=== PATIENT | female | born 1980 | race American Indian/Alaskan Native ===

== ENCOUNTER 2021-04-05 19:57 | Emergency (ER) | payer OTHER ==
[2021-04-05] MEDS ORDERED: METOCLOPRAMIDE 10 MG/2 ML INJ IV ONE (23:46)
[2021-04-05] MEDS ORDERED: diphenhydrAMINE 50 MG/ML VIAL IV ONE (23:46)
[2021-04-05] MEDS ORDERED: ACETAMINOPHEN 500 MG TAB PO ONE (23:46)
[2021-04-05] MEDS ORDERED: dexAMETHasone 20 MG/5 ML VIAL IV ONE (23:46)
[2021-04-05] MEDS ORDERED: amLODIPine 5 MG TAB PO ONE (23:47)
[2021-04-05] MEDS ORDERED: SODIUM CHLORIDE 0.9% 500 ML 500 ML IV ONE (23:47)
--- NOTE | 2021-04-05 23:59 | Emergency Department Report ---
ED General Adult HPI - General Chief complaint: Headache Stated complaint: HEADACHES X2 WEEKS/NAUSEA Time Seen by Provider: 04/05/21 23:45 Source: patient Mode of arrival: Ambulatory Limitations: No Limitations - History of Present Illness Initial comments: Patient 41-year-old Afro-[place]in[place] female who presents for frontal headache x2 weeks. Seen by [facility] PCP advised she has cluster headaches. Patient rates pain at 5/10 at this time there is no fever no chills no nausea no vomiting no ear or throat pain. Patient drove self to ED tonight patient is amatory to baseline per patient. Patient was there is associated photophobia no nausea no vomiting however. Headache is recurrent in same location and intensity and duration as of previous headaches. Patient prescribed Imitrex and Zofran states she only took 1 dose of each. Patient is tolerating p.o. intake. Patient has history of hypertension however did not take hypertensive medications today. - Related Data Previous Rx's Medication Instructions Recorded Last Taken Type Acetaminophen 1,000 mg PO Q6H PRN #30 cap 04/06/21 Unknown Rx Metoclopramide [Reglan] 10 mg PO Q6H PRN #30 tablet 04/06/21 Unknown Rx diphenhydrAMINE [Benadryl CAP] 25 mg PO Q6HR PRN #30 capsule 04/06/21 Unknown Rx Allergies Allergy/AdvReac Type Severity Reaction Status Date / Time meperidine [From Demerol] Allergy Unknown Verified 04/05/21 21:53 ED Review of Systems ROS: Stated complaint: HEADACHES X2 WEEKS/NAUSEA Other details as noted in HPI Constitutional: denies: chills, fever Eyes: other (photophobia). denies: eye pain, eye discharge, vision change ENT: denies: ear pain, throat pain Respiratory: denies: cough, shortness of breath, wheezing Cardiovascular: denies: chest pain, palpitations Endocrine: no symptoms reported Gastrointestinal: nausea. denies: abdominal pain, vomiting, diarrhea Genitourinary: denies: urgency, dysuria, discharge Musculoskeletal: denies: back pain, joint swelling, arthralgia Skin: denies: rash, lesions Neurological: headache. denies: weakness, numbness, paresthesias, confusion, vertigo Psychiatric: denies: anxiety, depression Hematological/Lymphatic: denies: easy bleeding, easy bruising ED Past Medical Hx - Past Medical History Previous Medical History?: No - Surgical History Past Surgical History?: No - Medications Home Medications: Home Medications Medication Instructions Recorded Confirmed Last Taken Type Acetaminophen 1,000 mg PO Q6H PRN #30 cap 04/06/21 Unknown Rx Metoclopramide [Reglan] 10 mg PO Q6H PRN #30 tablet 04/06/21 Unknown Rx diphenhydrAMINE [Benadryl CAP] 25 mg PO Q6HR PRN #30 capsule 04/06/21 Unknown Rx ED Physical Exam - General Limitations: No Limitations General appearance: alert, in no apparent distress - Head Head exam: Present: normocephalic - Eye Eye exam: Present: PERRL, EOMI. Absent: conjunctival injection, nystagmus Pupils: Present: normal accommodation - ENT ENT exam: Present: normal orophraynx, mucous membranes moist, TM's normal bilaterally - Neck Neck exam: Present: normal inspection, full ROM. Absent: tenderness, meningismu s, lymphadenopathy - Respiratory Respiratory exam: Present: normal lung sounds bilaterally. Absent: respiratory distress, wheezes, stridor, chest wall tenderness - Cardiovascular Cardiovascular Exam: Present: regular rate, normal rhythm, normal heart sounds. Absent: systolic murmur, diastolic murmur, rubs, gallop - GI/Abdominal GI/Abdominal exam: Present: soft, normal bowel sounds. Absent: distended, tenderness, bruit, hernia - Rectal Rectal exam: Present: deferred - Extremities Exam Extremities exam: Present: normal inspection, full ROM, normal capillary refill. Absent: tenderness - Back Exam Back exam: Present: normal inspection, full ROM. Absent: CVA tenderness (R), CVA tenderness (L), vertebral tenderness - Neurological Exam Neurological exam: Present: alert, oriented X3, CN II-XII intact, normal gait - Expanded Neurological Exam Expanded Patient oriented to: Present: person, place, time Speech: Present: fluid speech Motor strength exam: RUE: 5, LUE: 5, RLE: 5, LLE: 5 DTR: knee (R): 1+, knee (L): 1+ Best Eye Response (María): (4) open spontaneously Best Motor Response ([place]): (6) obeys commands Best Verbal Response (María): (5) oriented [place] Total: 15 - Psychiatric Psychiatric exam: Present: normal affect, normal mood - Skin Skin exam: Present: warm, dry, intact, normal color. Absent: rash ED Course Vital Signs 04/05/21 04/06/21 21:54 00:02 Temperature 98.0 F Pulse Rate 94 H Respiratory 18 14 Rate Blood Pressure 166/118 O2 Sat by Pulse 100 Oximetry ED Medical Decision Making - Medical Decision Making Headache is resolved at this time plan DC to home with prescriptions. Follow-up with your doctor in 2 to 3 days. Continue to hydrate as directed. Return to emergency department should symptoms worsen. Patient verbalized agreement and understanding of discharge plan. Patient DC'd home in stable condition at this time Critical care attestation.: If time is entered above; I have spent that time in minutes in the direct care of this critically ill patient, excluding procedure time. ED Disposition Clinical Impression: Cluster headache syndrome, not intractable Qualifiers: Headache chronicity pattern: episodic headache Qualified Code(s): G44.019 - Episodic cluster headache, not intractable Disposition: 01 HOME / SELF CARE / HOMELESS Is pt being admited?: No Does the pt Need Aspirin: No Condition: Stable Instructions: Form - Headache Record, Cluster Headache, [id number], Cluster Headache Additional Instructions: Take medications as prescribed. Hydrate as directed. Follow-up with your doctor in 2 to 3 days. Return to emergency department should symptoms worsen. Prescriptions: Acetaminophen 1,000 mg PO Q6H PRN #30 cap PRN Reason: Headache diphenhydrAMINE [Benadryl CAP] 25 mg PO Q6HR PRN #30 capsule PRN Reason: Headache Metoclopramide [Reglan] 10 mg PO Q6H PRN #30 tablet PRN Reason: Headache Referrals: RORY ORTIZ MD [Staff Physician] - 3-5 Days Forms: Work/School Release Form(ED) Time of Disposition: 03:20
[2021-04-06 04:06] VITALS: BP 115/81
== END 2021-04-06 03:53 | disposition home or self-care (01) ==
LOC: ED 19:57
DX: G44.009 Cluster headache syndrome, unspecified, not intractable (principal); Z88.8 Allergy status to other drugs, medicaments and biological substances; Z79.899 Other long term (current) drug therapy
CPT/HCPCS: 96374; 96375; 99282; J1100; J1200; J2765; J7040

== ENCOUNTER 2021-04-09 09:40 | Emergency (ER) | payer OTHER ==
--- NOTE | 2021-04-09 11:28 | Emergency Department Report ---
ED Headache HPI - General Chief Complaint: Headache Stated Complaint: HEADACHE/DIZZY Time Seen by Provider: 04/09/21 11:06 Source: patient Exam Limitations: no limitations - History of Present Illness Initial Comments: 41 yo comes to ER with headache off and on for 2 weeks She was here a couple of days ago- no scan Her mother has routine head MRI's following a ? pathology Pt endorses light sensitivity and nausea she also endorses difficulty with words when she had a headache no head trauma Her PCP Dr Foster has referred her to neuro; as did the ER but she has not folll owed up hx htn on norvasc lmp 03/30 ambulatory with no focal neuro def in triage Recent Head Trauma: no recent headache/trauma Associated Symptoms: denies symptoms, nausea/vomiting. denies: confusion, fatigue, facial pain, fever/chills, flushing, loss of consciousness, nasal congestion, nasal drainage, numbness in legs/feet, rash, seizures, sinus infection, stiff neck, vision changes, weakness Allergies/Adverse Reactions: Allergies meperidine [From Demerol] Allergy (Verified 04/05/21 21:53) Unknown Home Medications: Ambulatory Orders Acetaminophen 1,000 mg PO Q6H PRN #30 cap 04/06/21 Metoclopramide [Reglan] 10 mg PO Q6H PRN #30 tablet 04/06/21 diphenhydrAMINE [Benadryl CAP] 25 mg PO Q6HR PRN #30 capsule 04/06/21 ED Review of Systems ROS: Stated complaint: HEADACHE/DIZZY Other details as noted in HPI Comment: All other systems reviewed and negative ED Past Medical Hx - Past Medical History Previous Medical History?: No - Surgical History Past Surgical History?: No - Family History Family history: no significant - Social History Smoking Status: Never Smoker Substance Use Type: None - Medications Home Medications: Home Medications Medication Instructions Recorded Confirmed Last Taken Type Acetaminophen 1,000 mg PO Q6H PRN #30 cap 04/06/21 Unknown Rx Metoclopramide [Reglan] 10 mg PO Q6H PRN #30 tablet 04/06/21 Unknown Rx diphenhydrAMINE [Benadryl CAP] 25 mg PO Q6HR PRN #30 capsule 04/06/21 Unknown Rx ED Physical Exam - General Limitations: No Limitations General appearance: alert, in no apparent distress - Head Head exam: Present: atraumatic, normocephalic - Eye Eye exam: Present: normal appearance - ENT ENT exam: Present: mucous membranes moist - Neck Neck exam: Present: normal inspection - Respiratory Respiratory exam: Present: normal lung sounds bilaterally. Absent: respiratory distress - Cardiovascular Cardiovascular Exam: Present: regular rate, normal rhythm. Absent: systolic murmur, diastolic murmur, rubs, gallop - GI/Abdominal GI/Abdominal exam: Present: soft, normal bowel sounds - Extremities Exam Extremities exam: Present: normal inspection - Back Exam Back exam: Present: normal inspection - Neurological Exam Neurological exam: Present: alert, oriented X3 - Psychiatric Psychiatric exam: Present: normal affect, normal mood - Skin Skin exam: Present: warm, dry, intact, normal color. Absent: rash ED Course Vital Signs 04/09/21 10:44 Temperature 98.4 F Pulse Rate 92 H Respiratory 16 Rate Blood Pressure 121/84 O2 Sat by Pulse 100 Oximetry ED Medical Decision Making - Lab Data Result diagrams: 04/09/21 12:47 04/09/21 12:47 - Radiology Data Radiology results: report reviewed, image reviewed nap - Medical Decision Making pt updated on normal head ct medicated for pain in ER Vital Signs 04/09/21 10:44 Temperature 98.4 F Pulse Rate 92 H Respiratory 16 Rate Blood Pressure 121/84 O2 Sat by Pulse 100 Oximetry Labs 04/09/21 04/09/21 12:47 12:47 WBC 4.5 RBC 4.53 Hgb 13.0 Hct 39.0 MCV 86 MCH 29 MCHC 33 RDW 13.3 Plt Count 292 Sodium 137 Potassium 3.7 Chloride 98.5 Carbon Dioxide 22 Anion Gap 20 BUN 13 Creatinine 0.6 Estimated GFR > 60 BUN/Creatinine Ratio 22 Glucose 86 Calcium 9.2 Total Bilirubin 0.40 AST 13 ALT 13 Alkaline Phosphatase 66 Total Protein 8.4 H Albumin 4.9 Albumin/Globulin Ratio 1.4 labs noted dc home with dc plan of care including follow up with pcp/neuro. She should continue her meds- given in the ER the other day. She verbalizes understanding. Ambulatory on d/c and in nad - Differential Diagnosis ro intracranial process Critical care attestation.: If time is entered above; I have spent that time in minutes in the direct care of this critically ill patient, excluding procedure time. ED Disposition Clinical Impression: Cluster headache syndrome, not intractable Qualifiers: Headache chronicity pattern: unspecified pattern Qualified Code(s): G44.009 - Cluster headache syndrome, unspecified, not intractable Disposition: 01 HOME / SELF CARE / HOMELESS Is pt being admited?: No Does the pt Need Aspirin: No Condition: Stable Instructions: Cluster Headache Additional Instructions: follow up with neuro md ct head normal neuro MD will help you with headaches continue home meds Referrals: ANDREW DE ANDA MD [Staff Physician] - 3-5 Days NADIR GUADARRAMA MD [Staff Physician] - 3-5 Days Time of Disposition: 13:58
[2021-04-09] MEDS ORDERED: BUTALB/ACETAMINOPHEN/CAFFEINE TAB PO ONE (11:29)
[2021-04-09 13:09] LABS: Mean Corpuscular HGB Conc 33 % (30-34); Mean Corpuscular Volume 86 fl (79-97); Platelet Count 292 K/mm3 (140-440); Red Blood Count 4.53 M/mm3 (3.65-5.03); Red Cell Distribution Width 13.3 % (13.2-15.2)
[2021-04-09 13:32] LABS: Blood Urea Nitrogen 13 mg/dL (7-17); Calcium 9.2 mg/dL (8.4-10.2)
[2021-04-09 13:33] LABS: Alanine Aminotransferase 13 units/L (7-56); Albumin 4.9 g/dL (3.9-5); Hemolysis Index 7
[2021-04-09 13:57] LABS: BUN/Creatinine Ratio 22
[2021-04-09] MEDS ORDERED: ONDANSETRON 4 MG ODT TAB PO ONE (14:41)
[2021-04-09 14:50] VITALS: BP 116/76
--- NOTE | 2021-04-09 23:52 | Cat Scan Report ---
CT head/brain wo con INDICATION: Persistent global headache. N/v photophobia. TECHNIQUE: All CT scans at this location are performed using CT dose reduction for ALARA by means of automated e xposure control. COMPARISON: None available. FINDINGS: There is no evidence of hemorrhage, hydrocephalus, brain edema, or mass effect/mass lesion. There is overall normal brain formation and brain volume for the patient's age. Ventricular and cisternal/sulc al size is normal for age. The included paranasal sinuses and mastoid air cells are clear. The orbits appear unremarkable. IMPRESSION: 1. No acute findings. Signer Name: Vinod Kidd MD Signed: 04/09/2021 12:11 PM Workstation Name: [id number]
== END 2021-04-09 14:50 | disposition home or self-care (01) ==
LOC: ED 09:40
DX: G44.009 Cluster headache syndrome, unspecified, not intractable (principal)
CPT/HCPCS: 36415; 70450; 80053; 85027; 99284